=== PATIENT | female | born 2000 | race Caucasian/White ===

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

== ENCOUNTER 2022-02-08 19:24 | Emergency (ER) | payer MEDICAID ==
[~2022-02-08] VITALS: Ht 175.3 cm; Wt 90.7 kg
[2022-02-08 20:26] VITALS: BP_SYST 102
--- NOTE | 2022-02-08 20:31 | NUR ---
Patient triaged and placed in waiting room. VSS and patient appears in no acute distress at this time. Accompanied by SELF, awaiting available bed, and MD notified of need for MSE.
[2022-02-08 21:14] LABS: BILIRUBIN,URINE NEGATIVE (NEGATIVE); BLOOD, URINE NEGATIVE (NEGATIVE); CLARITY/URINE CLEAR (CLEAR); COLOR,URINE YELLOW (YELLOW); GLUCOSE,URINE NEGATIVE (NEGATIVE); KETONES,URINE NEGATIVE (NEGATIVE); LEUKOCYTE ESTERASE ,URINE NEGATIVE (NEGATIVE); NITRITE, URINE NEGATIVE (NEGATIVE); PROTEIN URINE NEGATIVE (NEGATIVE); UROBILINOGEN,URINE 0.2 (0.2-1.0)
[2022-02-08 21:22] LABS: HCG,QUAL RESULT NEGATIVE (NEGATIVE)
[2022-02-08 21:24] LABS: BASOPHILS # (AUTO) 0.1 K/uL (0.0-0.2); BASOPHILS % (AUTO) 0.7 % (0.0-2.0); EOSINOPHILS # (AUTO) 0.1 K/uL (0.0-0.4); EOSINOPHILS % (AUTO) 1.1 % (0.0-4.0); HEMOGLOBIN 12.1 g/dL (12.0-16.0); LYMPHOCYTES % (AUTO) 27.8 % (20.5-51.5); MEAN CORPUSCULAR HEMOGLOBIN 27 pg (27-31); MEAN CORPUSCULAR HGB CONC 33 % (32-36); MEAN CORPUSCULAR VOLUME 82 fL (79.0-98.0); MONOCYTES # (AUTO) 0.5 K/uL (0.0-1.0); MONOCYTES % (AUTO) 6.2 % (1.7-9.3); NEUTROPHILS # (AUTO) 4.7 K/uL (1.8-7.7); NEUTROPHILS % (AUTO) 64.2 % (40.0-70.0); PLATELET COUNT (AUTO) 290 K/uL (130-430); RED BLOOD CELL COUNT(AUTO) 4.53 MIL/uL (4.2-6.2); RED CELL DISTRIBUTION WIDTH 14.4 % (9.0-15.0); WHITE BLOOD COUNT (AUTO) 7.3 K/uL (4.8-10.8)
[2022-02-08 21:28] LABS: ANION GAP 7 (5-15); CALCIUM 9.1 mg/dL (8.4-11.0); CHLORIDE 104 mmol/L (98-107); CREATININE 0.78 mg/dL (0.55-1.30); GLUCOSE 147 mg/dL (70-99); POTASSIUM 3.6 mmol/L (3.5-5.1); SODIUM SERUM 138 mmol/L (136-145); UREA NITROGEN, BLOOD 12 mg/dL (8-21)
[2022-02-08 21:34] LABS: ALANINE AMINOTRANSFERASE 17 U/L (12-78); ALBUMIN 3.8 g/dL (3.4-4.8); ASPARTATE AMINOTRANSFERASE 18 U/L (10-37); TOTAL BILIRUBIN < 0.1 mg/dL (0.0-1.0)
[2022-02-08 21:35] LABS: GFR AFRICAN AMERICAN 119 mL/min (>90)
--- NOTE | 2022-02-08 22:15 | NUR ---
Patient to ER bed 3 to gown for evaluation. Side rails up. Report given to DELGADO SAN.
--- NOTE | 2022-02-08 22:40 | NUR ---
LIANET Lee at bedside examining patient.
--- NOTE | 2022-02-08 23:15 | NUR ---
Pt taken to US for imaging. Female RN (Pam) at bedside as witness.
--- NOTE | 2022-02-08 23:30 | NUR ---
21 Year old pt brought self in due to Left pelvic pain x3 weeks. Pain is sharp and worse today. No reports of N/V. Denies any injury/trauma. No other symptom reported. Appears in no acute distress. Verbally responsive and able to make needs known. VSS stable.
[2022-02-09] MEDS ORDERED: CYCL10TA24 PO (02:43)
[2022-02-09] MEDS ORDERED: IBUP-1969 PO (02:43)
--- NOTE | 2022-02-09 03:29 | NUR ---
Patient given written and verbal discharge instructions and verbalizes understanding. ER MD discussed with patient the results and treatment provided. Patient in stable condition. ID arm band removed. Rx of Flexeril,Ibuprofen given. Patient educated on pain management and to follow up with PMD. Pain Scale 6/10. Opportunity for questions provided and answered. Medication side effect fact sheet provided.
[2022-02-09 03:30] VITALS: BP_SYST 116
[2022-02-09] MEDS ORDERED: IBUPROFEN 600 MG TABLET PO ONE (03:30)
== END 2022-02-09 03:30 | disposition home or self-care (01) ==
LOC: SED 19:24
DX: R10.32 Left lower quadrant pain (principal); R10.2 Pelvic and perineal pain; M54.10 Radiculopathy, site unspecified; N39.0 Urinary tract infection, site not specified
CPT/HCPCS: 36415; 76376; 76830-TC; 76857; 80053; 81003; 81025; 84703; 85025; 85651-TC; 99284

== ENCOUNTER 2022-11-02 13:30 | Emergency (ER) | payer MEDICAID, OTHER ==
[~2022-11-02] VITALS: Ht 175.3 cm; Wt 86.2 kg
[2022-11-02 13:30] VITALS: BP_SYST 126
[~2022-11-02 13:30] MED LIST: CYCL10TA24 PO; IBUP-1969 PO
--- NOTE | 2022-11-02 13:35 | NUR ---
Patient triaged and placed in waiting room. VSS and patient appears in no acute distress at this time. Accompanied by SELF, awaiting available bed, and MD notified of need for MSE.
--- NOTE | 2022-11-02 13:50 | NUR ---
PT STATES THAT YESTERDAY SHE HAD LLQ PAIN AND IT LASTED ABOUT 6 HOURS. TODAY THE PAIN CAME BACK WORSE WITH VAG BLEEDING. STATES SHE IS TRYING TO GET OFF THE DEPO SHOT AND SO HER PERIODS ARE IRREGULAR. PT STATES SHE HAS A H/O OVARIAN CYSTS AND SHE THINKS ONE BURST ON LEFT SIDE.
[2022-11-02 14:13] LABS: BILIRUBIN,URINE NEGATIVE (NEGATIVE); BLOOD, URINE 3+ (NEGATIVE); CLARITY/URINE CLEAR (CLEAR); COLOR,URINE YELLOW (YELLOW); GLUCOSE,URINE NEGATIVE (NEGATIVE); KETONES,URINE NEGATIVE (NEGATIVE); LEUKOCYTE ESTERASE ,URINE NEGATIVE (NEGATIVE); NITRITE, URINE NEGATIVE (NEGATIVE); PROTEIN URINE NEGATIVE (NEGATIVE); UROBILINOGEN,URINE 0.2 (0.2-1.0)
--- NOTE | 2022-11-02 14:13 | NUR ---
BROUGHT BACK TO BED IN HALLWAY BY DR RODRIGUEZ. DR RODRIGUEZ AT BEDSIDE FOR EVALUATION
[2022-11-02] MEDS ORDERED: KETOROLAC TROMETHAMINE 60 MG/2 ML VIAL IM ONE (14:15)
[2022-11-02 14:19] LABS: HCG,QUAL RESULT NEGATIVE (NEGATIVE)
[2022-11-02 14:23] LABS: BACTERIA,URINE RARE /HPF (None Seen); MUCUS,URINE 1+ /LPF (None Seen); RBC,URINE 20-50 /HPF (0-3); WBC,URINE 0-3 /HPF (0-3)
--- NOTE | 2022-11-02 14:44 | NUR ---
TAKEN TO RADIOLOGY VIA WHEELCHAIR
--- NOTE | 2022-11-02 14:59 | NUR ---
[place] swab sent to lab.
[2022-11-02] MEDS ORDERED: NAPR-1172 PO (15:47)
--- NOTE | 2022-11-02 15:48 | NUR ---
DR RODRIGUEZ AT BEDSIDE FOR EVALUATION
--- NOTE | 2022-11-02 15:56 | NUR ---
Patient given written and verbal discharge instructions and verbalizes understanding. ER MD discussed with patient the results and treatment provided. Patient in stable condition. ID arm band removed. Rx of NAPROSYN given. Patient educated on pain management and to follow up with PMD. Pain Scale 0/10. Opportunity for questions provided and answered. Medication side effect fact sheet provided.
== END 2022-11-02 15:56 | disposition home or self-care (01) ==
LOC: SED 13:30
DX: N83.8 Other noninflammatory disorders of ovary, fallopian tube and broad ligament (principal); R10.32 Left lower quadrant pain; Z79.899 Other long term (current) drug therapy
CPT/HCPCS: 99284; 76830; 76857; 81000; 84703; 87210; 81025; 96372; J1885